=== PATIENT | male | born 1995 | race Caucasian/White ===

== ENCOUNTER 2019-01-07 17:23 | Emergency (ER) | payer OTHER ==
[2019-01-07 18:33] VITALS: BP 135/90
--- NOTE | 2019-01-07 19:17 | EDM.PDOC ---
ED HPI GENERAL MEDICAL PROBLEM - General Chief Complaint: Laceration Stated Complaint: LEFT HAND LACERATION Time Seen by Provider: 01/07/19 19:17 - History of Present Illness INITIAL COMMENTS - FREE TEXT/NARRATIVE: 23-year-old male presents emergency room with a left thumb injury. 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 He had some bleeding immediately his last tetanus shot he states is up-to-date he thinks he had one 2 years ago. She does no other injuries associated with this he denies any other symptoms. - Related Data Allergies Allergy/AdvReac Type Severity Reaction Status Date / Time No Known Allergies Allergy Verified 06/27/16 13:09 Home Meds: Home Meds cephALEXin [Cephalexin] 500 mg PO Q6H #28 tablet 01/07/19 [Rx] Past Medical History - Past Health History Medical/Surgical History: Denies Medical/Surgical History - Past Surgical History Musculoskeletal Surgical History: Reports: ORIF Social & Family History - Family History Family Medical History: Noncontributory - Caffeine Use Caffeine Use: Reports: Coffee - Recreational Drug Use Recreational Drug Use: No ED ROS GENERAL - Review of Systems Review Of Systems: See Below Constitutional: Reports: No Symptoms Respiratory: Reports: No Symptoms Cardiovascular: Reports: No Symptoms GI/Abdominal: Reports: No Symptoms ED EXAM, SKIN/RASH Exam: See Below Exam Limited By: No Limitations General Appearance: Alert, No Apparent Distress Head: Atraumatic, Normocephalic Neck: Normal Inspection, Supple, Non-Tender, Full Range of Motion Respiratory/Chest: No Respiratory Distress, Lungs Clear, Normal Breath Sounds Cardiovascular: Regular Rate, Rhythm, No Edema, No Murmur GI/Abdominal: Normal Bowel Sounds, Soft, Non-Tender, No Organomegaly, No Distention, No Abnormal Bruit, No Mass Extremities: Other (Admission left thumb shows a oblique laceration over the dorsal aspect of the extensor surface of the thumb at the interphalangeal joint. Patient has severely compromised extension function.) Skin: Warm, Dry, Intact, Other (Laceration see extremity) ED SKIN PROCEDURES - Laceration/Wound Repair Left Digit - 1st (Thumb) Lac/Wound length In cm: 2.5 Appearance: Subcutaneous Anesthetic Type: Digital Local Anesthesia - Lidocaine (Xylocaine): 1% Plain Local Anesthetic Volume: 2cc Saline Irrigation (cc's): 100 Exploration/Debridement/Repair: Wound Explored, In a Bloodless Field Suture Size: 3-0 # of Sutures: 3 Suture Type: Nylon Tetanus Status Addressed: Yes (This is up-to-date) Complications: No Progress/Comments: He is splinted in a slight extended position. Course - Vital Signs Last Recorded V/S: Last Vital Signs Temp 36.9 C 01/07/19 18:29 Pulse 54 L 01/07/19 18:29 Resp 18 01/07/19 18:29 BP 135/90 01/07/19 18:29 Pulse Ox 98 01/07/19 18:29 - Orders/Labs/Meds Orders: Active Orders 24 hr Category Date Time Status Fingers Thumb Lt FA [CR] Stat Exams 01/07/19 19:25 Taken Meds: Medications Discontinued Medications Generic Name Dose Route Start Last Admin Trade Name Freq PRN Reason Stop Dose Admin Lidocaine HCl 5 ml 01/07/19 20:07 01/07/19 20:12 Xylocaine-Mpf 1% INJECT 01/07/19 20:08 Not Given ONETIME ONE Lidocaine HCl 10 ml 01/07/19 20:11 Xylocaine 1% INJECT 01/07/19 20:12 ONETIME ONE Lidocaine HCl Confirm 01/07/19 20:10 01/07/19 20:23 Xylocaine 1% Administered 01/07/19 20:11 Not Given Dose 10 ml .ROUTE .STK-MED ONE - Re-Assessments/Exams Free Text/Narrative Re-Assessment/Exam: 01/07/19 19:[address] Ramirez today who recommends the patient follow-up with one of his hand specialist partners in [place] tomorrow to a few loose stitches in and splint it. 01/07/19 20:38 Case was discussed with Dr. Terrazas on-call for alejandra and anika Shrestha who recommends the patient call for appointment this week to have this repaired he also agrees with loosely approximating it at this time Departure - Departure Time of Disposition: 20:40 Disposition: Home, Self-Care 01 Clinical Impression: Laceration of left thumb with tendon involvement - Discharge Information Prescriptions: cephALEXin [Cephalexin] 500 mg PO Q6H #28 tablet Forms: ED Department Discharge Additional Instructions: Return to emergency room with any questions problems worsening symptoms. Tomorrow morning call shelli Shrestha [phone] to get this looked at and then repaired. You been started on antibiotic be sure and take this as directed your first dose was given the emergency room get the prescription filled first thing tomorrow morning Tylenol and Motrin as needed for pain. The splint will help considerably with discomfort. - My Orders Last 24 Hours: My Active Orders 01/07/19 19:25 Fingers Thumb Lt FA [CR] Stat - Assessment/Plan Last 24 Hours: My Active Orders 01/07/19 19:25 Fingers Thumb Lt FA [CR] Stat
[2019-01-07] MEDS ORDERED: Lidocaine 1% 10 ML MDV ONE (20:10)
[2019-01-07] MEDS ORDERED: Lidocaine 1% 10 ML MDV INJECT ONE (20:11)
[2019-01-07] MEDS ORDERED: Cephalexin 500 MG Cap PO ONE (20:43)
--- NOTE | 2019-01-08 06:22 | CR ---
Left thumb: Four views of the left thumb were obtained. Comparison: No prior thumb study. Soft tissue injury is seen. Very minimal cortical defect is noted in the area of soft tissue injury involving the proximal phalanx. No fracture or other bony abnormality is seen. Several small soft tissue opaque foreign bodies are seen in area of soft tissue injury. Impression: 1. Soft tissue injury with very minimal cortical defect within the proximal phalanx is seen in area of the soft tissue injury. 2. Small radiopaque foreign bodies are seen in area of soft tissue injury. 3. No fracture or other abnormality is seen. Diagnostic code #3
== END 2019-01-07 20:51 | disposition home or self-care (01) ==
LOC: JD.ED 17:23
DX: S66.222A Laceration of extensor muscle, fascia and tendon of left thumb at wrist and hand level, initial encounter (principal); W31.89XA Contact with other specified machinery, initial encounter
CPT/HCPCS: 12001; 73140; 99283; A9270; J2001; 99282

== ENCOUNTER 2024-07-22 10:11 | Emergency (ER) | payer OTHER ==
[2024-07-22 11:17] LABS: BASOPHILS PERCENT AUTO 0.3 % (0.0-1.0); EOSINOPHILS ABSOLUTE AUTO 0.2 K/mm3 (0.0-0.4); EOSINOPHILS PERCENT AUTO 1.5 % (0.0-6.0); HEMOGLOBIN 14.9 gm/dl (14.0-18.0); IMMATURE GRAN ABSOLUTE AUTO 0.04 K/mm3 (0.00-0.05); IMMATURE GRAN PERCENT AUTO 0.4 % (0.0-0.4); LYMPHOCYTES ABSOLUTE AUTO 1.9 K/mm3 (1.0-4.8); LYMPHOCYTES PERCENT AUTO 17.5 % (24.0-44.0); MEAN CORPUSCULAR HEMOGLOBIN 31.3 pg (28.0-32.0); MEAN CORPUSCULAR HGB CONC 33.9 g/dl (32.0-36.0); MEAN CORPUSCULAR VOLUME 92.4 fl (83.0-99.0); MONOCYTES PERCENT AUTO 9.3 % (0.0-8.0); NEUTROPHILS ABSOLUTE AUTO 7.7 K/mm3 (1.8-7.7); PLATELET COUNT,PLT 234 K/mm3 (150-400); RED BLOOD CELL COUNT 4.76 M/mm3 (4.52-5.90); WHITE BLOOD CELL COUNT,WBC 10.77 K/mm3 (3.9-11.3)
[2024-07-22] MEDS: Diphtheria,Pertussis(Acell),Tetanus Vaccine 0.5 ML Syringe IM ONE (11:29)
[2024-07-22] MEDS: Sodium Chloride 0.9% 10 ML Syringe FLUSH PRN (11:30)
[2024-07-22 11:38] LABS: A/G RATIO 1.4 (1-2); ALBUMIN 4.6 g/dl (3.4-5.0); ANION GAP 14.5 (5-15); BILIRUBIN TOTAL 0.6 mg/dL (0.2-1.0); BUN/CREATININE RATIO 18.9 (14-18); CALCIUM 9.4 mg/dL (8.5-10.1); CREATININE 0.9 mg/dL (0.7-1.3); EST CRCL DRUG DOSING (CG) 115.5 mL/min; POTASSIUM,K 3.5 mEq/L (3.5-5.1); PROTEIN TOTAL,TP 7.8 g/dl (6.4-8.2)
[2024-07-22 19:39] VITALS: BP 123/71; PULSE 68
== END 2024-07-22 13:12 | disposition home or self-care (01) ==
LOC: JD.ED 10:11
DX: S01.01XA Laceration without foreign body of scalp, initial encounter (principal); Z23 Encounter for immunization; W01.0XXA Fall on same level from slipping, tripping and stumbling without subsequent striking against object, initial encounter
CPT/HCPCS: 12005; 36415; 70450; 72125; 80053; 85025; 90471; 90715; 99284; J3490